=== PATIENT | female | born 1990 | race Hispanic/Latino ===

== ENCOUNTER 2020-05-23 16:05 | Emergency (ER) | payer SELFPAY ==
[2020-05-23] MEDS ORDERED: Acetaminophen 500 MG TAB ONE (16:28)
[2020-05-23 16:36] LABS: #Eosinphils 0.1 10x3/uL (0.0-0.5); #Monocytes 0.8 10x3/uL (0.0-1.1); #Neutrophils 10.4 10x3/uL (1.5-8.4); %Basophils 0.2 % (0.0-2.0); %Eosinophils 0.7 % (0.0-6.0); %Lymphocytes 17.5 % (18.0-47.0); %Monocytes 5.6 % (0.0-10.0); %Neutrophils 75.7 % (40.0-75.0); Hemoglobin 11.6 g/dL (12.0-15.5); Mean Corpuscular HGB CONC 32.7 g/dL (32.0-36.0); Mean Corpuscular Hemoglobin 29.5 pg (27.0-33.0); Mean Corpuscular Volume 90.3 fl (81.6-98.3); Mean Platelet Volume 11.2 fl (7.4-10.4); Platelet Count 224 10x3/uL (150-450); Red Blood Cell (RBC) Count 3.93 10x6/uL (3.90-5.03); White Blood Cell (WBC) Count 13.7 10x3/uL (3.5-10.5)
[2020-05-23] MEDS ORDERED: Ondansetron ODT 4 MG TAB ONE (16:51)
== END 2020-05-23 17:38 | disposition home or self-care (01) ==
LOC: CSHERS 16:05
DX: O20.9 Hemorrhage in early pregnancy, unspecified (principal); Z3A.08 8 weeks gestation of pregnancy
CPT/HCPCS: 36415; 76856; 84702; 85025; Q0162

== ENCOUNTER 2020-06-30 18:51 | Emergency (ER) | payer OTHER, SELFPAY ==
[2020-06-30 19:15] LABS: #Eosinphils 0.1 10x3/uL (0.0-0.5); #Monocytes 0.7 10x3/uL (0.0-1.1); #Neutrophils 8.6 10x3/uL (1.5-8.4); %Basophils 0.2 % (0.0-2.0); %Eosinophils 1.2 % (0.0-6.0); %Lymphocytes 15.4 % (18.0-47.0); %Monocytes 6.3 % (0.0-10.0); %Neutrophils 76.3 % (40.0-75.0); Mean Corpuscular HGB CONC 33.8 g/dL (32.0-36.0); Mean Corpuscular Hemoglobin 30.6 pg (27.0-33.0); Mean Corpuscular Volume 90.3 fl (81.6-98.3); Mean Platelet Volume 11.1 fl (7.4-10.4); Platelet Count 200 10x3/uL (150-450); RBC Distribution Width 14.2 % (11.5-14.5); White Blood Cell (WBC) Count 11.2 10x3/uL (3.5-10.5)
[2020-06-30 19:24] LABS: ALT (SGPT) 13 U/L (8-55); AST (SGOT) 13 U/L (5-34); Albumin 3.5 g/dL (3.5-5.0); Alkaline Phosphatase 42 U/L (40-110); Anion Gap 13 mmol/L (10-20); BUN (Urea Nitrogen) 12 mg/dL (7.0-18.7); Bilirubin, Total 0.2 mg/dL (0.2-1.2); Calc. Creatinine Clearance 0 mL/min (70-130); Carbon Dioxide 25 mmol/L (22-29); Chloride 104 mmol/L (98-107); Glucose 90 mg/dL (70-105); Potassium 3.7 mmol/L (3.5-5.1); Protein, Total 6.5 g/dL (6.0-8.3); Sodium 138 mmol/L (136-145)
[2020-06-30 19:32] LABS: Bilirubin Neg (Negative); Blood, Urine Negative (Negative); Clarity Clear (Clear); Glucose, Urine (Dipstick) Normal (Negative); Ketone, Urine Negative (Negative); Leukocyte Negative (Negative); Nitrite Negative (Negative); Protein, Urine (Dipstick) Negative (Neg-Trace); Specific Gravity, Urine 1.015 (1.002-1.036); Urobilinogen Normal mg/dL (Less than 2)
[2020-07-03 20:28] LABS: Chlamydia by PCR Not Detected (NotDetected); GC by PCR Not Detected (NotDetected)
== END 2020-06-30 21:28 ==
LOC: CSHERS 18:51 → EEVIPCON 18:51 → CSHERS 21:28
DX: O20.9 Hemorrhage in early pregnancy, unspecified (principal); Z3A.13 13 weeks gestation of pregnancy
CPT/HCPCS: 80053; 81003; 84702; 85025; 86900; 86901; 87480; 87491; 87510; 87591; 87660